=== PATIENT | male | born 1960 | race Caucasian/White ===

== ENCOUNTER 2019-08-30 06:41 | Inpatient (IN) | payer BC ==
[2019-08-30] MEDS ORDERED: NITROGLYCERIN SL TABS 0.4 MG TAB SUBLINGUAL STA (06:43)
--- NOTE | 2019-08-30 06:48 | ED ---
Chest Pain HPI - General Stated Complaint: STEMI Time Seen by Provider: 08/30/19 06:43 Source: patient, EMS Mode of arrival: EMS - History of Present Illness MD Complaint: chest pain Onset/Timin -: hour(s) Onset: during rest, awoke with symptoms Pain Location: substernal Pain Radiation: none Severity: severe Quality: heaviness Consistency: constant Improves With: nothing Worsens With: nothing Anginal Symptoms: nausea, dyspnea Treatments Prior to Arrival: aspirin - Related Data Home Medications Medication Instructions Recorded Confirmed Calcium Carbonate [Tums] 500 mg PO TID PRN 08/30/19 08/30/19 Previous Rx's Medication Instructions Recorded Albuterol Inhaler [Ventolin Hfa 1 - 2 puff INHALATION RT-Q6H PRN 09/02/19 Inhaler] #1 inhaler Aspirin 81 mg PO DAILY #30 chew 09/02/19 Atorvastatin [Lipitor] 80 mg PO HS #30 tab 09/02/19 Lisinopril [Zestril] 2.5 mg PO DAILY #30 tab 09/02/19 Metoprolol Tartrate [Lopressor] 12.5 mg PO BID #60 tab 09/02/19 Nicotine 21Mg/24Hr Patch [Habitrol] 1 patch TRANSDERM DAILY #14 patch 09/02/19 Nitroglycerin Sl Tabs [Nitrostat] 0.4 mg SUBLINGUAL Q5M PRN #25 tab 09/02/19 Prasugrel [Effient] 10 mg PO DAILY #30 tab 09/02/19 Allergies Allergy/AdvReac Type Severity Reaction Status Date / Time No Known Allergies Allergy Verified 08/30/19 07:28 Review of Systems ROS Statement: Those systems with pertinent positive or pertinent negative responses have been documented in the HPI. ROS Other: All systems not noted in ROS Statement are negative. EKG Findings - EKG Results: EKG: interpreted by ERMD, sinus rhythm (With PVC. Rate 64 bpm), normal axis - MD, Pacemaker, Normal: Myocardial infarction: inferior MD (acute or recent), anterior MD (acute or recent) Past Medical History Past Medical History: No Reported History History of Any Multi-Drug Resistant Organisms: None Reported Past Surgical History: No Surgical Hx Reported Past Psychological History: No Psychological Hx Reported Smoking Status: Current every day smoker Past Alcohol Use History: None Reported Past Drug Use History: None Reported - Past Family History Mother Family Medical History: Cancer, Coronary Artery Disease (CAD) Father Family Medical History: Coronary Artery Disease (CAD) General Exam General appearance: alert, in distress Head exam: Present: atraumatic, normocephalic Eye exam: Present: normal appearance. Absent: scleral icterus, conjunctival injection ENT exam: Present: mucous membranes dry Neck exam: Present: normal inspection Respiratory exam: Present: normal lung sounds bilaterally. Absent: respiratory distress, wheezes, rales, rhonchi, stridor Cardiovascular Exam: Present: regular rate, normal rhythm, normal heart sounds. Absent: systolic murmur, diastolic murmur, rubs, gallop GI/Abdominal exam: Present: soft. Absent: distended, tenderness, guarding, rebound, rigid, mass Extremities exam: Present: normal inspection, normal capillary refill. Absent: pedal edema, calf tenderness Back exam: Present: normal inspection. Absent: CVA tenderness (R), CVA tenderness (L) Neurological exam: Present: alert Skin exam: Present: warm, dry, intact, normal color. Absent: rash Course Vital Signs 08/30/19 08/30/19 08/30/19 06:42 06:43 06:45 Temperature 97.3 F L Pulse Rate 67 68 75 Pulse Rate [ 67 Precision Grinder ] Respiratory 20 25 H 11 L Rate Blood Pressure 164/101 164/101 164/101 O2 Sat by Pulse 100 100 100 Oximetry 08/30/19 06:55 Temperature Pulse Rate 71 Pulse Rate [ Precision Grinder ] Respiratory 20 Rate Blood Pressure 148/109 O2 Sat by Pulse 98 Oximetry - Reevaluation(s) Reevaluation #1: 08/30/19 06:48 Patient's 59-year-old man brought to be evaluated for chest pain by ambulance. 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 Critical Care Time Critical Care Time: Yes (30 minutes) Disposition Clinical Impression: ST elevation myocardial infarction (STEMI) Disposition: ADMITTED IP TO THIS HOSP
[2019-08-30] MEDS ORDERED: ATORVASTATIN 80 MG TAB PO STA (06:52)
[2019-08-30] MEDS ORDERED: MORPHINE SULFATE 4 MG/ML SYRINGE IV STA (06:52)
[2019-08-30] MEDS ORDERED: HEPARIN SODIUM,PORCINE 5,000 UNIT/ML 1 ML VIAL IV ONE (06:53)
[2019-08-30] MEDS ORDERED: HEPARIN SODIUM,PORCINE 5,000 UNIT/ML 1 ML VIAL IV PRN (06:53)
[2019-08-30] MEDS ORDERED: NITROGLYCERIN-D5W PMX 50 MG in DEXTROSE/WATER 1 250ML.BAG IV ONE (06:55)
--- NOTE | 2019-08-30 06:58 | XR ---
EXAMINATION TYPE: XR chest 1V portable DATE OF EXAM: 08/30/2019 COMPARISON: NONE HISTORY: Chest pain TECHNIQUE: Single view FINDINGS: Heart is normal. There is a mild infiltrate right medial lung base. The other lung cool a re clear. There are chest leads. There is no heart failure. IMPRESSION: Mild right lower lobe pneumonia. Normal heart.
[2019-08-30] MEDS ORDERED: HEPARIN SOD,PORK IN 0.45% NACL 25,000 UNIT in 0.45% NACL 1 250ML.BAG IV SCH (07:00)
[2019-08-30] MEDS ORDERED: LIDOCAINE 1% INJ 10MG/ML (20 ML MDV) ONE (07:01)
[2019-08-30] MEDS ORDERED: fentaNYL (PF) 50 MCG/ML 2 ML AMP ONE (07:01)
[2019-08-30] MEDS ORDERED: ONDANSETRON 4 MG/2 ML VIAL IVP STA (07:03)
[2019-08-30 07:05] LABS: Basophils # (A) 0.1 k/uL (0-0.2); Basophils % (A) 1 %; Eosinophils # (A) 0.3 k/uL (0-0.7); Eosinophils % (A) 2 %; Lymphocytes # (A) 3.7 k/uL (1.0-4.8); Lymphocytes % (A) 34 %; MCH 31.1 pg (25.0-35.0); MCHC 35.6 g/dL (31.0-37.0); MCV 87.4 fL (80.0-100.0); Mean Platelet Volume 8.2; Monocytes # (A) 0.6 k/uL (0-1.0); Monocytes % (A) 6 %; Neutrophils # (A) 5.9 k/uL (1.3-7.7); Neutrophils % (A) 54 %; Platelet Count 322 k/uL (150-450); RBC 5.15 m/uL (4.30-5.90); RDW 12.6 % (11.5-15.5); WBC 10.9 k/uL (3.8-10.6)
[2019-08-30] MEDS ORDERED: IV FLUID CONTINUATION 500 ML IV ONE (07:15)
[2019-08-30] MEDS ORDERED: IV FLUID CONTINUATION 1,000 ML IV ONE (07:15)
[2019-08-30 07:16] LABS: Albumin 4.2 g/dL (3.5-5.0); Calcium 10.3 mg/dL (8.4-10.2); Magnesium 2.2 mg/dL (1.6-2.3); Potassium 4.3 mmol/L (3.5-5.1); Total Bilirubin 0.7 mg/dL (0.2-1.3)
[2019-08-30] MEDS ORDERED: MIDAZOLAM 2 MG/2 ML VIAL IV ONE ×3 (07:22→07:49)
[2019-08-30] MEDS ORDERED: LIDOCAINE 1% INJ 10MG/ML (20 ML MDV) SQ ONE (07:23)
[2019-08-30 07:24] LABS: D-Dimer 0.35 mg/L FEU (<0.60); INR 0.9 (<1.2); Prothrombin Time 9.9 sec (9.0-12.0)
[2019-08-30] MEDS: fentaNYL (PF) 50 MCG/ML 2 ML AMP IV ONE ×2 (07:30→07:50)
[2019-08-30] MEDS ORDERED: PRASUGREL 10 MG TAB ONE (07:36)
[2019-08-30] MEDS ORDERED: BIVALIRUDIN BOLUS 250 MG/50 ML IV ONE (07:37)
[2019-08-30 07:38] LABS: Creatine Kinase MB 2.4 ng/mL (0.0-2.4); Troponin I 0.034 ng/mL (0.000-0.034)
[2019-08-30] MEDS ORDERED: BIVALIRUDIN 250 MG in SODIUM CHLORIDE 0.9% 50 ML IV ONE ×2 (07:38→08:07)
[2019-08-30] MEDS ORDERED: niCARdipine 25 MG/10 ML VIAL ONE (07:40)
[2019-08-30] MEDS ORDERED: PRASUGREL 10 MG TAB PO ONE (07:40)
[2019-08-30] MEDS ORDERED: ATROPINE SULFATE 0.1 MG/ML 10ML SYRINGE IV ONE (07:42)
[2019-08-30] MEDS: NITROGLYCERIN 1000MCG/10ML SYRINGE INTRACORON ONE ×2 (07:50→07:56)
[2019-08-30] MEDS ORDERED: IOPAMIDOL-370 125ML BTL INJ ONE (08:02)
[2019-08-30] MEDS ORDERED: IOPAMIDOL-370 100ML BTL INJ ONE (08:21)
[2019-08-30] MEDS ORDERED: RX INFO: IV CONTRAST WAS GIVEN 1 EACH MISC MISCELLANE PRN (08:49)
[2019-08-30] MEDS ORDERED: NITROGLYCERIN SL TABS 0.4 MG TAB SUBLINGUAL PRN (08:49)
[2019-08-30] MEDS ORDERED: ZOLPIDEM 5 MG TAB PO PRN (08:49)
[2019-08-30] MEDS ORDERED: MAG HYDROX/AL HYDROX/SIMETH 30 ML CUP PO PRN (08:49)
[2019-08-30] MEDS ORDERED: ATROPINE SULFATE 0.1 MG/ML 10ML SYRINGE IV PRN (08:49)
[2019-08-30] MEDS ORDERED: SODIUM CHLORIDE 0.9% 1,000 ML IV SCH (09:00)
[2019-08-30 09:01] LABS: Glucose,Whole Blood 111 mg/dL (75-99)
[2019-08-30] MEDS ORDERED: LISINOPRIL 10 MG TAB PO SCH (09:15)
--- NOTE | 2019-08-30 09:25 | PTCA ---
PERCUTANEOUSTRANS CORORONARY ANGIOGRAPHY PERCUTANEOUS CORONARY INTERVENTION: DATE OF SERVICE: August 30, 2019. PERFORMING PHYSICIAN: Brando Harrell MD. PROCEDURE PERFORMED: 1. Aspiration thrombectomy from the right coronary artery. 2. Successful stenting of the mid right coronary artery using a 3.5 x 15 and 4.0 x 8 mm Xience JAKE with an excellent angiographic result and reduction of stenosis from 100% to 0%. 3. Successful stenting of the mid left anterior descending artery using a 3.5 x 15 mm Xience with JAKE with an excellent angiographic result and reduction of stenosis from 80% to 0%. INDICATION: This is a 59-year-old gentleman with no prior medical history, who presented to the hospital with chest discomfort and was diagnosed with acute inferior ST-elevation myocardial infarction. An emergent heart catheterization was advised by Dr. Perez. The heart catheterization revealed acute total occlusion of the RCA with critical disease involving the LAD. Percutaneous coronary intervention emergently was advised. APPROACH: Right common femoral artery. COMPLICATION: None. LEVEL OF SEDATION: Moderate with sedation length of 47 minutes. Door to balloon is 60 minutes. PROCEDURE DESCRIPTION: Please refer to diagnostic heart catheterization was performed by Dr. Perez earlier today. Anticoagulation was initiated using Angiomax. Subsequently I did engage the right coronary artery using JR4 guide. I did wire it and cross the acute total occlusion using a Whisper J wire. After that I did aspiration thrombectomy using [place] catheter with extraction of significant amount of thrombus from the right coronary artery. After that I did balloon angioplasty using 3.0 x 12 mm balloon before I deployed 3.5 x 15 mm Xience JAKE where the stent was positioned under fluoroscopy guidance and deployed under 18 atmospheres for 20 seconds. I post dilated the stent using 4 mm NC balloon, but the following angiogram showed proximal edge dissection which I decided to cover using a 4.0 x 8 mm another Xience JAKE. The second stent was deployed under its nominal pressure for 20 seconds. The area of overlap was dilated using the stent balloon and the following angiograph showed excellent angiographic results. For the LAD, I did engage the left main using JL4 guide. I did wire it using the same whisper wire. I did predilatation using 3.0 x 12 mm balloon before I deployed 3.5 x 15 mm another Xience JAKE where the second stent was positioned under fluoroscopy guidance and deployed under its nominal pressure. The following angiogram showed excellent angiographic results and the procedure was completed without any complication. POSTPROCEDURE MANAGEMENT: 1. Dual antiplatelet therapy. 2. Risk factor modifications. 3. Follow up with the patient. TRANG / ALLISON: [id number] /
--- NOTE | 2019-08-30 09:32 | LTR ---
August 30, 2019 Re: Umesh Martinez Dear Dr. Huerta: MrDyllan Martinez presented to the emergency room at [facility] with chest discomfort and was found to be in acute inferior ST-elevation myocardial infarction. He underwent an emergent heart catheterization by Dr. Perez and I did perform successful percutaneous intervention on the RCA and LAD. Thank you for allowing us to participate in his care and please do not hesitate to call if you have any question or concern. Sincerely, MD TRANG Barfield / GRISELDAN: [id number] /
--- NOTE | 2019-08-30 10:08 | CONS ---
CONSULTATION CHIEF COMPLAINT: Chest pain. This is a 59-year-old gentleman with no significant past medical history who presented to hospital with sudden onset chest pain. The pain started an hour prior to coming in. He describes it as severe pericardial chest pain 9-10 out of intensity that radiated to his back. EKG showed acute ST-segment elevation in the inferior leads and the patient was advised emergent cath and primary angioplasty. PAST MEDICAL HISTORY: Negative for hypertension, diabetes, dyslipidemia. MEDICATIONS: None. ALLERGIES: None. FAMILY HISTORY: Negative for premature coronary artery disease. SOCIAL HISTORY: Significant for smoking. There is no history of EtOH abuse or drug abuse. REVIEW OF SYSTEMS: HEENT: Unremarkable. CARDIAC: As described above. RESPIRATORY: Negative. GI: Negative. GENITOURINARY: Negative. ALLERGY/IMMUNOLOGY: Negative. SKIN: Negative. MUSCULOSKELETAL: Negative. DERM: Negative. CONSTITUTIONAL: Negative ONCOLOGICAL: Negative. VOCAL MUSIC INSTRUCTOR: Negative. Rest of the system review is not relevant. PHYSICAL EXAM: Patient is comfortable at rest. Vital signs are stable. There is no jugular venous distention. Carotid upstroke is normal. There is no bruit. Chest exam reveals good air entry bilaterally. Heart exam reveals first and second heart sounds. No gallop. Abdomen is soft. Exam of the extremities did not reveal any edema. Peripheral pulses are felt. EKG showed acute inferior wall myocardial infarction. Labs were pending. ASSESSMENT: Acute inferior wall myocardial infarction. PLAN: The patient will undergo emergent cardiac catheterization. CARDIAC CATHETERIZATION NOTE: INDICATION: Acute inferior wall myocardial infarction. PROCEDURE NOTE: After obtaining informed consent, left heart catheterization and coronary angiogram were performed via the right femoral artery using standard Noé catheters. Patient tolerated the procedure well without any obvious immediate complications. Patient received moderate conscious sedation. Total sedation time was 11 minutes. FINDINGS: HEMODYNAMICS: Left ventricular end-diastolic pressure is 16 mm. There is no significant gradient across the aortic valve. LEFT VENTRICULOGRAM: Left ventriculogram was not performed. ANGIOGRAPHIC DATA: LEFT MAIN CORONARY ARTERY: Left main coronary artery is a normal-sized vessel and is free of stenosis. Divides into left anterior descending coronary artery and circumflex coronary artery. LAD shows an 80% - 90% focal stenosis in the midportion. The circumflex coronary artery shows mild nonobstructive coronary artery disease. Right coronary artery is totally occluded in its proximal portion. CONCLUSION: 1. Acute occlusion of the proximal right coronary artery. 2. An 80% to 90% stenosis in the left anterior descending a. PLAN: Patient will undergo angioplasty of both the RCA and the LAD. MMNICK / IJN: [id number] /
[2019-08-30] MEDS: LISINOPRIL 2.5 MG TAB PO SCH (10:22)
[2019-08-30] MEDS: ASPIRIN 325 MG TAB PO SCH (10:22)
[2019-08-30] MEDS: METOPROLOL TARTRATE 12.5 MG TAB PO SCH ×2 (10:22→21:14)
[2019-08-30] MEDS: NICOTINE 21MG/24HR PATCH TRANSDERM SCH (10:22)
--- NOTE | 2019-08-30 12:33 | ECHOF ---
Referral Reason:STEMI MEASUREMENTS -------- HEIGHT: 170.2 cm WEIGHT: 97.5 kg BP: 148/109 RVIDd: 3.7 cm (< 3.3) IVSd: 1.3 cm (0.6 - 1.1) LVIDd: 4.2 cm (3.9 - 5.3) LVPWd: 1.3 cm (0.6 - 1.1) IVSs: 1.7 cm LVIDs: 2.9 cm LVPWs: 1.9 cm LAESV Index (A-L): 35.49 ml/m Ao Diam: 3.4 cm (2.0 - 3.7) AV Cusp: 1.9 cm (1.5 - 2.6) LA Diam: 4.0 cm (2.7 - 3.8) MV E Sarbjit: 0.67 m/s MV DecT: 237 ms MV A Sarbjit: 0.81 m/s MV E/A Ratio: 0.84 RAP: 5.00 mmHg RVSP: 25.16 mmHg FINDINGS -------- Sinus rhythm. This was a technically adequate study. The left ventricular size is normal. Left ventricular wall thickness is normal. Overall left vent ricular systolic function is low-normal with, an EF between 50 - 55 %. The diastolic filling patter n is normal for the age of the patient 6.96. Basal inferior LV wall motion is hypokinetic. Mid i nferior LV wall motion is hypokinetic. The right ventricle is mildly enlarged. LA is moderately dilated 34-39 ml/m2 The right atrial size is normal. Interatrial and interventricular septum intact. The aortic valve is trileaflet and appears structurally normal. There is no evidence of aortic regu rgitation. There is no evidence of aortic stenosis. Mild mitral regurgitation is present. Trace tricuspid regurgitation present. There is no evidence of pulmonary hypertension. The right ventricular systolic pressure, as measured by Doppler, is 25.16mmHg. There is no pulmonic regurgitation present. The aortic root size is normal. Normal inferior vena cava with normal inspiratory collapse consistent with estimated right atrial pre ssure of 5 mmHg. There is no pericardial effusion. CONCLUSIONS -------- 1. Sinus rhythm. 2. This was a technically adequate study. 3. The left ventricular size is normal. 4. Left ventricular wall thickness is normal. 5. Overall left ventricular systolic function is low-normal with, an EF between 50 - 55 %. 6. The diastolic filling pattern is normal for the age of the patient 6.96 7. Basal inferior LV wall motion is hypokinetic. 8. Mid inferior LV wall motion is hypokinetic. 9. The right ventricle is mildly enlarged. 10. LA is moderately dilated 34-39 ml/m2 11. The right atrial size is normal. 12. Interatrial and interventricular septum intact. 13. The aortic valve is trileaflet and appears structurally normal. 14. There is no evidence of aortic regurgitation. 15. There is no evidence of aortic stenosis. 16. Mild mitral regurgitation is present. 17. Trace tricuspid regurgitation present. 18. There is no evidence of pulmonary hypertension. 19. The right ventricular systolic pressure, as measured by Doppler, is 25.16mmHg. 20. There is no pulmonic regurgitation present. 21. The aortic root size is normal. 22. Normal inferior vena cava with normal inspiratory collapse consistent with estimated right atrial pressure of 5 mmHg. 23. There is no pericardial effusion. CALL CENTER RECRUITER: Shabnam Beltran RDCS
--- NOTE | 2019-08-30 12:44 | PN ---
PROGRESS NOTE Mr. Martinez is a 59-year-old gentleman, a smoker, who presented with acute inferior [place] and underwent stenting of a totally occluded RCA by Dr. Harrell. Dr. Perez performed a cardiac catheterization. He also had stenting of mid LAD which was a significant lesion. I saw him post procedure in the ICU. He is comfortable, resting, denies any chest pain. Vital signs stable. Right groin is clean and dry with a good pulse. S1, S2 heard normally. Lungs are clear. Abdomen and lower extremity exam unchanged. Plan is to continue current medical regimen including dual antiplatelet therapy and we will assess his LV function by echocardiogram and if he is more stable, we will move him to telemetry tomorrow. Discussed my thoughts in detail with the patient. MMJACINTAL / GRISELDAN: [id number] /
--- NOTE | 2019-08-30 19:40 | P.HPIM ---
History of Present Illness H&P Date: 08/30/19 Chief Complaint: Chest pain History of presenting complaint: This is a pleasant 59-year-old patient of Dr. Huerta. Patient long-standing smoker. About 540 this morning patient took a shower minutes coffee the noticed he was getting a chest pressure that progressively got worse. Patient was just feeling out of sorts started breaking a sweat became short of breath and decided to call the EMS and presented to the ER. Patient did go to neck, arms. EKG showed ST elevation in inferior and anterior leads. Patient stated the cardiac catheterization lab. Patient had successful stenting of the RCA and LAD. Currently in the ICU. Sitting up in a chair. No further cardiac symptoms. at the bedside. Patient gets sometimes short-winded or doing activity at her baseline. Has got a chronic cough and chronic clear sputum production every day. Sometimes wheezing. Review of systems: GEN.: Tired EYES: None HEENT: None NECK: None RESPIRATORY: As above CARDIOVASCULAR: [As above GASTROINTESTINAL: None GENITOURINARY: None MUSCULOSKELETAL: Pain in the right knee, some of the joints LYMPHATICS: None HEMATOLOGICAL: None PSYCHIATRY: None NEUROLOGICAL: None Social history: Smokes a pack a day for about 46 years. 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 . Family history: Coronary artery disease Physical examination: VITAL SIGNS: 97.367, 20, 164/101, 100% room air GENERAL: BMI 35.6, sitting up in a chair awake. EYES: Pupils equal. Conjunctiva normal. HEENT: External appearance of nose and ears normal, oral cavity grossly normal. NECK: JVD not raised; masses not palpable. HEART: First and second heart sounds are normal; no edema. LUNGS: Respiratory rate normal; decreased breath sounds throughout, prolonged expiration extremity wheezing. ABDOMEN: Soft, nontender, liver spleen not palpable, no masses palpable. PSYCH: Alert and oriented x3; mood and affect normal. NEUROLOGICAL: Cranial nerves grossly intact; no facial asymmetry, power and sensation grossly intact. LYMPHATICS: No lymph nodes palpable in the axilla and neck INVESTIGATIONS, reviewed in the clinical context: White count 10.9 hemoglobin 16 platelets 320 to percussion 4.3 bun 15 creatinine 1.28 EKG tracing personally reviewed by me-ST elevation inferior-anterior leads sinus rhythm Chest x-ray film personally reviewed by me-cardiomegaly, questionable venous prominence 2-D echocardiogram-year 50-55%, inferior wall hypokinetic Assessment: -Acute ST elevation microinfarction involved both the anterior and inferior wall -Coronary artery disease with stent emergently placed port to the LAD and RCA -Chronic nicotine dependence patient cigarette smoker -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 Currently on Aspirin and Lipitor IV Heparin Zestril Lopressor Nitrostat Effient. Has a Nicotine Patch. Blood Nebulized Bronchodilators Inhaled Steroids. Care Was Discussed the Patient and Questions Were Answered Past Medical History Past Medical History: No Reported History History of Any Multi-Drug Resistant Organisms: None Reported Past Surgical History: No Surgical Hx Reported Additional Past Surgical History / Comment(s): eye surgery for loose muscles when he was 4, 12, and 18 years old. Past Anesthesia/Blood Transfusion Reactions: No Reported Reaction Past Psychological History: No Psychological Hx Reported Smoking Status: Current every day smoker Past Alcohol Use History: None Reported Past Drug Use History: None Reported - Past Family History Mother Family Medical History: Cancer, Coronary Artery Disease (CAD) Father Family Medical History: Coronary Artery Disease (CAD) Medications and Allergies Home Medications Medication Instructions Recorded Confirmed Type Calcium Carbonate [Tums] 500 mg PO TID PRN 08/30/19 08/30/19 History Allergies Allergy/AdvReac Type Severity Reaction Status Date / Time No Known Allergies Allergy Verified 08/30/19 07:28 Physical Exam Vitals: Vital Signs Temp Pulse Pulse Resp BP Pulse Ox 08/30/19 09:30 64 16 109/75 08/30/19 09:15 64 19 120/77 08/30/19 09:00 98.3 F 69 12 122/75 08/30/19 06:55 71 20 148/109 98 08/30/19 06:45 75 67 11 L 164/101 100 08/30/19 06:43 68 25 H 164/101 100 08/30/19 06:42 97.3 F L 67 20 164/101 100 Intake and Output 08/29/19 08/30/19 08/30/19 22:59 06:59 14:59 Intake Total 491 Balance 491 Intake: IV 491 Other: Weight 97.522 kg 103 kg Results CBC & Chem 7: 08/30/19 06:50 08/30/19 06:50 Labs: Abnormal Lab Results - Last 24 Hours (Table) 08/30/19 08/30/19 08/30/19 Range/Units 06:50 06:50 06:50 WBC 10.9 H (3.8-10.6) k/uL Chloride 111 H (98-107) mmol/L Carbon Dioxide 16 L (22-30) mmol/L Creatinine 1.28 H (0.66-1.25) mg/dL Glucose 111 H (74-99) mg/dL POC Glucose (mg/dL) (75-99) mg/dL Calcium 10.3 H (8.4-10.2) mg/dL Total Creatine Kinase 188 H (55-170) U/L 08/30/19 Range/Units 08:50 WBC (3.8-10.6) k/uL Chloride (98-107) mmol/L Carbon Dioxide (22-30) mmol/L Creatinine (0.66-1.25) mg/dL Glucose (74-99) mg/dL POC Glucose (mg/dL) 111 H (75-99) mg/dL Calcium (8.4-10.2) mg/dL Total Creatine Kinase (55-170) U/L Thrombosis Risk Factor Assmnt - Choose All That Apply Any of the Below Risk Factors Present?: Yes Each Factor Represents 1 point: Acute NE, Age 41-60 years, Medical pt on bed rest Other Risk Factors: No Other congenital or acquired thrombophilia - If yes, enter type in comment: No Thrombosis Risk Factor Assessment Total Risk Factor Score: 3 Thrombosis Risk Factor Assessment Level: Moderate Risk
[2019-08-30] MEDS: ATORVASTATIN 80 MG TAB PO SCH (21:14)
[2019-08-30] MEDS: BUDESONIDE 0.5 MG/2 ML NEBU INHALATION SCH (23:00)
[2019-08-30] MEDS: IPRATROPIUM-ALBUTEROL 3 ML NEB INHALATION SCH (23:01)
[2019-08-31 05:44] LABS: Basophils % (A) 0 %; Eosinophils # (A) 0.1 k/uL (0-0.7); Eosinophils % (A) 1 %; HCT 39.8 % (39.0-53.0); HGB 13.9 gm/dL (13.0-17.5); Lymphocytes # (A) 1.7 k/uL (1.0-4.8); Lymphocytes % (A) 17 %; MCH 30.9 pg (25.0-35.0); MCV 88.3 fL (80.0-100.0); Mean Platelet Volume 8.1; Monocytes # (A) 0.4 k/uL (0-1.0); Monocytes % (A) 4 %; Neutrophils # (A) 7.6 k/uL (1.3-7.7); Neutrophils % (A) 76 %; Platelet Count 217 k/uL (150-450); RDW 12.6 % (11.5-15.5)
[2019-08-31 05:59] LABS: African American GFR (CKD) >90 (>60 ml/min/1.73 sqM); Anion Gap 5 mmol/L; Blood Urea Nitrogen 13 mg/dL (9-20); Calcium 9.3 mg/dL (8.4-10.2); Carbon Dioxide 22 mmol/L (22-30); Chloride 110 mmol/L (98-107); Glucose 90 mg/dL (74-99); Non-African American GFR(CKD) 79 (>60 ml/min/1.73 sqM); Potassium 4.4 mmol/L (3.5-5.1); Sodium 137 mmol/L (137-145)
[2019-08-31] MEDS: BUDESONIDE 0.5 MG/2 ML NEBU INHALATION SCH ×2 (07:40→19:31)
[2019-08-31] MEDS: IPRATROPIUM-ALBUTEROL 3 ML NEB INHALATION SCH ×4 (07:40→19:31)
[2019-08-31] MEDS: PRASUGREL 10 MG TAB PO SCH (08:16)
[2019-08-31] MEDS: NICOTINE 21MG/24HR PATCH TRANSDERM SCH (08:16)
[2019-08-31] MEDS: ASPIRIN 325 MG TAB PO SCH (08:16)
[2019-08-31] MEDS: LISINOPRIL 2.5 MG TAB PO SCH (08:16)
[2019-08-31] MEDS: METOPROLOL TARTRATE 12.5 MG TAB PO SCH ×2 (08:16→19:59)
--- NOTE | 2019-08-31 13:08 | P.PN ---
Subjective Progress Note Date: 08/31/19 Principal diagnosis: Acute ST elevation SC This is a pleasant 59-year-old gentleman who presented to the hospital with chest discomfort and was diagnosed with acute inferior ST elevation myocardial infarction be he underwent a heart catheterization and was found to have occluded RCA which was a stented and also critical disease involving the LAD which was stented as well. The echo revealed normal LV function. He was seen this morning. He is chest pain-free. The right groin is soft nontender and without any bruises. He continues to be on maximize medical treatment including dual antiplatelet therapy. The echo showed normal LV function. No arrhythmia noted the patient can be transferred to the floor. Objective - Vital Signs Vital signs: Vital Signs Temp 98.7 F 08/31/19 12:00 Pulse 70 08/31/19 12:00 Resp 18 08/31/19 12:00 BP 135/93 08/31/19 12:00 Pulse Ox 94 L 08/31/19 12:00 Intake & Output 08/30/19 08/31/19 08/31/19 18:59 06:59 18:59 Intake Total 1766 375 0 Output Total 450 775 300 Balance 1316 -400 -300 Weight 103 kg 106.7 kg Intake: IV 1466 375 0 Sodium Chloride 0.9% 1, 975 375 0 000 ml @ 75 mls/hr IV . [id number] [facility] Rx#:[id number] Oral 300 Output: Urine 450 775 300 Other: Voiding Method Urinal # Voids 0 0 - Constitutional General appearance: Present: no acute distress - Respiratory Respiratory: bilateral: CTA - Cardiovascular Rhythm: regular Heart sounds: normal: S1, S2 - Labs CBC & Chem 7: 08/31/19 05:08 08/31/19 05:08 Labs: Abnormal Lab Results - Last 24 Hours (Table) 08/31/19 Range/Units 05:08 Chloride 110 H (98-107) mmol/L Assessment and Plan Assessment: Assessment #[address] elevation myocardial infarction #2 status post PCI of the RCA and LAD #3 preserved left ventricular systolic function #4 hypertension #5 dyslipidemia Plan #1 continue the current medical regimen #2 continue dual antiplatelet therapy along with high intensity statin #3 the patient can be transferred to the floor
[2019-08-31 13:43] VITALS: BMI 36.8
[2019-08-31] MEDS: ATORVASTATIN 80 MG TAB PO SCH (19:59)
--- NOTE | 2019-08-31 22:12 | P.PN ---
Progress Note - Text Progress Note Date: 08/31/19 Chief Complaint: Chest pain Interval history: This is a pleasant 59-year-old patient of Dr. Huerta. Patient long-standing smoker. About 540 this morning patient took a shower minutes coffee the noticed he was getting a chest pressure that progressively got worse. Patient was just feeling out of sorts started breaking a sweat became short of breath and decided to call the EMS and presented to the ER. Patient did go to neck, arms. EKG showed ST elevation in inferior and anterior leads. Patient stated the cardiac catheterization lab. Patient had successful stenting of the RCA and LAD. Today-on the medical floor. Breathing stable. No chest pain. Has been up in the hallway. Diet okay. Review of systems: Was done for constitutional, cardiovascular, GI, pulmonary. relevant finding as above Active Medications Al Hydroxide/Mg Hydroxide (Maalox) 30 ml PO Q4HR PRN PRN Reason: Heartburn Last Admin: 08/30/19 16:55 Dose: 30 ml Documented by: Albuterol/Ipratropium (Duoneb 0.5 Mg-3 Mg/3 Ml Soln) 3 ml INHALATION RT-QID [facility] Last Admin: 08/31/19 19:31 Dose: Not Given Documented by: Aspirin (Aspirin) 325 mg PO DAILY [facility] Last Admin: 08/31/19 08:16 Dose: 325 mg Documented by: Atorvastatin Calcium (Lipitor) 80 mg PO HS [facility] Last Admin: 08/31/19 19:59 Dose: 80 mg Documented by: Atropine Sulfate (Atropine) 0.5 mg IV ONCE PRN PRN Reason: Symptomatic Bradycardia Budesonide (Pulmicort) 0.5 mg INHALATION RT-BID [facility] Last Admin: 08/31/19 19:31 Dose: Not Given Documented by: Heparin Sodium (Porcine) (Heparin) 0 unit IV PER PROTOCOL PRN; Protocol PRN Reason: Low PTT Lisinopril (Zestril) 2.5 mg PO DAILY [facility] Last Admin: 08/31/19 08:16 Dose: 2.5 mg Documented by: Metoprolol Tartrate (Lopressor) 12.5 mg PO BID [facility] Last Admin: 08/31/19 19:59 Dose: 12.5 mg Documented by: Miscellaneous Information (Rx Info: Iv Contrast Was Given) 1 each MISCELLANE DAILY PRN PRN Reason: Per Protocol Stop: 09/01/19 08:49 Nicotine (Habitrol 21mg/24hr Patch) 1 patch TRANSDERM DAILY [facility] Last Admin: 08/31/19 08:16 Dose: 1 patch Documented by: Nitroglycerin (Nitrostat) 0.4 mg SUBLINGUAL Q5M PRN PRN Reason: Chest Pain Prasugrel (Effient) 10 mg PO DAILY [facility] Last Admin: 08/31/19 08:16 Dose: 10 mg Documented by: Zolpidem Tartrate (Ambien) 5 mg PO HS PRN PRN Reason: Insomnia Physical examination: VITAL SIGNS: 98.2, 70, 16, 126/85, 97% room air GENERAL: Sitting sitting up in bed, comfortable EYES: Pupils equal. Conjunctiva normal. HEENT: External appearance of nose and ears normal, oral cavity grossly normal. NECK: JVD not raised; masses not palpable. HEART: First and second heart sounds are normal; no edema. LUNGS: Respiratory rate normal; decreased breath sounds throughout, prolonged expiration extremity wheezing. ABDOMEN: Soft, nontender, liver spleen not palpable, no masses palpable. PSYCH: Alert and oriented x3; mood and affect normal. INVESTIGATIONS, reviewed in the clinical context: White count 10 hemoglobin 13.9 and creatinine 1.04 Previous testing EKG tracing personally reviewed by me-ST elevation inferior-anterior leads sinus rhythm Chest x-ray film personally reviewed by me-cardiomegaly, questionable venous prominence 2-D echocardiogram-year 50-55%, inferior wall hypokinetic Assessment: -Acute ST elevation microinfarction involved both the anterior and inferior wall -Coronary artery disease with stent emergently placed port to the LAD and RCA -Chronic nicotine dependence patient cigarette smoker -COPD in a combination of chronic bronchitis and emphysema -Obesity BMI 35.6 Plan: Doing better. Encouraged tablet. Continue current medication treatment plan. Care discussed with the patient .
[2019-09-01 06:33] LABS: Basophils % (A) 0 %; Eosinophils # (A) 0.2 k/uL (0-0.7); Eosinophils % (A) 2 %; HCT 42.7 % (39.0-53.0); HGB 14.9 gm/dL (13.0-17.5); Lymphocytes # (A) 1.8 k/uL (1.0-4.8); Lymphocytes % (A) 18 %; MCH 30.8 pg (25.0-35.0); MCHC 34.9 g/dL (31.0-37.0); MCV 88.3 fL (80.0-100.0); Mean Platelet Volume 8.4; Monocytes # (A) 0.6 k/uL (0-1.0); Monocytes % (A) 6 %; Neutrophils % (A) 72 %; Platelet Count 203 k/uL (150-450); RBC 4.84 m/uL (4.30-5.90); RDW 12.3 % (11.5-15.5); WBC 9.7 k/uL (3.8-10.6)
[2019-09-01] MEDS: IPRATROPIUM-ALBUTEROL 3 ML NEB INHALATION SCH ×4 (08:22→20:24)
[2019-09-01] MEDS: BUDESONIDE 0.5 MG/2 ML NEBU INHALATION SCH ×2 (08:22→20:21)
[2019-09-01] MEDS: NICOTINE 21MG/24HR PATCH TRANSDERM SCH (09:03)
[2019-09-01] MEDS: METOPROLOL TARTRATE 12.5 MG TAB PO SCH ×2 (09:03→20:20)
[2019-09-01] MEDS: PRASUGREL 10 MG TAB PO SCH (09:03)
[2019-09-01] MEDS: ASPIRIN 325 MG TAB PO SCH (09:03)
[2019-09-01] MEDS: LISINOPRIL 2.5 MG TAB PO SCH (09:03)
--- NOTE | 2019-09-01 12:30 | P.PN ---
Subjective Progress Note Date: 09/01/19 Principal diagnosis: Acute ST elevation MO This is a pleasant 59-year-old gentleman who presented to the hospital with chest discomfort and was diagnosed with acute inferior ST elevation myocardial infarction be he underwent a heart catheterization and was found to have occluded RCA which was a stented and also critical disease involving the LAD which was stented as well. The echo revealed normal LV function. The patient was seen this morning, September [id number]. He is asymptomatic from the cardiovascular standpoint overview. The blood pressure is marginal but he has no dizziness or lightheadedness. The heart rate has been in the 70s. He has been maintaining normal sinus mechanism. The echo revealed normal left ventricular systolic function. He is on maximize medical treatment including dual antiplatelet therapy and high intensity statin. The patient possibly can be discharged home tomorrow. Objective - Vital Signs Vital signs: Vital Signs Temp 98.5 F 09/01/19 09:11 Pulse 89 09/01/19 09:11 Resp 16 09/01/19 09:11 BP 109/62 09/01/19 09:11 Pulse Ox 96 09/01/19 09:11 Intake & Output 08/31/19 09/01/19 09/01/19 18:59 06:59 18:59 Intake Total 420 240 Output Total 300 Balance 120 240 Weight 106.7 kg 99 kg Intake: IV 0 Sodium Chloride 0.9% 1, 0 000 ml @ 75 mls/hr IV . [id number] [facility] Rx#:[id number] Oral 420 240 Output: Urine 300 Other: Voiding Method Urinal Urinal # Voids 1 1 - Constitutional General appearance: Present: no acute distress - Respiratory Respiratory: bilateral: CTA - Cardiovascular Rhythm: regular Heart sounds: normal: S1, S2 - Labs CBC & Chem 7: 09/01/19 05:48 08/31/19 05:08 Assessment and Plan Assessment: Assessment #[address] elevation myocardial infarction #2 status post PCI of the RCA and LAD #3 preserved left ventricular systolic function #4 hypertension #5 dyslipidemia Plan #1 continue the current medical regimen #2 continue dual antiplatelet therapy along with high intensity statin #3 discharged home in the next 24 hours
--- NOTE | 2019-09-01 20:14 | P.PN ---
Progress Note - Text Progress Note Date: 09/01/19 Chief Complaint: Chest pain Interval history: This is a pleasant 59-year-old patient of Dr. Huerta. Patient long-standing smoker. About 540 this morning patient took a shower minutes coffee the noticed he was getting a chest pressure that progressively got worse. Patient was just feeling out of sorts started breaking a sweat became short of breath and decided to call the EMS and presented to the ER. Patient did go to neck, arms. EKG showed ST elevation in inferior and anterior leads. Patient stated the cardiac catheterization lab. Patient had successful stenting of the RCA and LAD. Today-up and about. No chest pain. No shortness of breath. Breathing stable. Review of systems: Was done for constitutional, cardiovascular, GI, pulmonary. relevant finding as above Active Medications Al Hydroxide/Mg Hydroxide (Maalox) 30 ml PO Q4HR PRN PRN Reason: Heartburn Last Admin: 08/30/19 16:55 Dose: 30 ml Documented by: Albuterol/Ipratropium (Duoneb 0.5 Mg-3 Mg/3 Ml Soln) 3 ml INHALATION RT-QID [facility] Last Admin: 09/01/19 16:16 Dose: Not Given Documented by: Aspirin (Aspirin) 325 mg PO DAILY [facility] Last Admin: 09/01/19 09:03 Dose: 325 mg Documented by: Atorvastatin Calcium (Lipitor) 80 mg PO HS [facility] Last Admin: 08/31/19 19:59 Dose: 80 mg Documented by: Atropine Sulfate (Atropine) 0.5 mg IV ONCE PRN PRN Reason: Symptomatic Bradycardia Budesonide (Pulmicort) 0.5 mg INHALATION RT-BID [facility] Last Admin: 09/01/19 08:22 Dose: Not Given Documented by: Heparin Sodium (Porcine) (Heparin) 0 unit IV PER PROTOCOL PRN; Protocol PRN Reason: Low PTT Lisinopril (Zestril) 2.5 mg PO DAILY [facility] Last Admin: 09/01/19 09:03 Dose: 2.5 mg Documented by: Metoprolol Tartrate (Lopressor) 12.5 mg PO BID [facility] Last Admin: 09/01/19 09:03 Dose: 12.5 mg Documented by: Nicotine (Habitrol 21mg/24hr Patch) 1 patch TRANSDERM DAILY [facility] Last Admin: 09/01/19 09:03 Dose: 1 patch Documented by: Nitroglycerin (Nitrostat) 0.4 mg SUBLINGUAL Q5M PRN PRN Reason: Chest Pain Prasugrel (Effient) 10 mg PO DAILY [facility] Last Admin: 09/01/19 09:03 Dose: 10 mg Documented by: Zolpidem Tartrate (Ambien) 5 mg PO HS PRN PRN Reason: Insomnia Physical examination: VITAL SIGNS: 98.5, 89, 16, 109/62, 96% room air GENERAL: sitting up in bed, comfortable EYES: Pupils equal. Conjunctiva normal. HEENT: External appearance of nose and ears normal, oral cavity grossly normal. NECK: JVD not raised; masses not palpable. HEART: First and second heart sounds are normal; no edema. LUNGS: Respiratory rate normal; improved air entry ABDOMEN: Soft, nontender, liver spleen not palpable, no masses palpable. PSYCH: Alert and oriented x3; mood and affect normal. INVESTIGATIONS, reviewed in the clinical context: Hemoglobin 14.9 Previous testing EKG tracing personally reviewed by me-ST elevation inferior-anterior leads sinus rhythm Chest x-ray film personally reviewed by me-cardiomegaly, questionable venous prominence 2-D echocardiogram-year 50-55%, inferior wall hypokinetic Assessment: -Acute ST elevation microinfarction involved both the anterior and inferior wall -Coronary artery disease with stent emergently placed port to the LAD and RCA -Chronic nicotine dependence patient cigarette smoker -COPD in a combination of chronic bronchitis and emphysema -Obesity BMI 35.6 Plan: Stable. Doing well. Hopefully home tomorrow. Continue current meds. Discussed.
[2019-09-01] MEDS: ATORVASTATIN 80 MG TAB PO SCH (20:20)
[2019-09-02 00:47] VITALS: RESP 18
[2019-09-02 05:48] LABS: Basophils # (A) 0.1 k/uL (0-0.2); Basophils % (A) 1 %; Eosinophils # (A) 0.2 k/uL (0-0.7); Eosinophils % (A) 2 %; HCT 43.5 % (39.0-53.0); HGB 15.1 gm/dL (13.0-17.5); Lymphocytes # (A) 2.1 k/uL (1.0-4.8); Lymphocytes % (A) 23 %; MCH 30.7 pg (25.0-35.0); MCHC 34.8 g/dL (31.0-37.0); MCV 88.2 fL (80.0-100.0); Monocytes # (A) 0.6 k/uL (0-1.0); Monocytes % (A) 6 %; Neutrophils # (A) 6.1 k/uL (1.3-7.7); Neutrophils % (A) 66 %; Platelet Count 236 k/uL (150-450); RBC 4.93 m/uL (4.30-5.90); RDW 12.3 % (11.5-15.5); WBC 9.3 k/uL (3.8-10.6)
[2019-09-02 09:49] VITALS: BP 128/73; TEMP 97.7
[2019-09-02] MEDS: METOPROLOL TARTRATE 12.5 MG TAB PO SCH (09:49)
[2019-09-02] MEDS: NICOTINE 21MG/24HR PATCH TRANSDERM SCH (09:50)
[2019-09-02] MEDS: ASPIRIN 325 MG TAB PO SCH (09:50)
[2019-09-02] MEDS: LISINOPRIL 2.5 MG TAB PO SCH (09:50)
[2019-09-02] MEDS: PRASUGREL 10 MG TAB PO SCH (09:50)
[2019-09-02] MEDS: BUDESONIDE 0.5 MG/2 ML NEBU INHALATION SCH (10:07)
[2019-09-02 11:40] VITALS: PULSE 66
--- NOTE | 2019-09-02 12:26 | P.PN ---
Subjective Progress Note Date: 09/02/19 's is a 59-year-old gentleman who initially presented to the hospital with an inferior lateral ST elevation myocardial infarction. He underwent angioplasty and stenting of the RCA as well as the LAD. Patient was seen and examined this morning, denied any chest pain, breathing was stable. Blood pressure 128/70 with a heart rate of 70, 97% on room air. White blood cell count 9.3, hemoglobin 15.1, platelet count 236. Objective - Vital Signs Vital signs: Vital Signs Temp 97.7 F 09/02/19 09:49 Pulse 66 09/02/19 11:38 Resp 18 09/02/19 11:38 BP 128/73 09/02/19 09:49 Pulse Ox 97 09/02/19 09:49 Intake & Output 09/01/19 09/02/19 09/02/19 18:59 06:59 18:59 Intake Total 956 530 250 Output Total 620 Balance 956 -90 250 Weight 98.1 kg Intake: IV 30 10 Invasive Line 2 30 10 Oral 956 500 240 Output: Urine 620 Other: Voiding Method Urinal Urinal Urinal # Voids 2 1 # Bowel Movements 1 - Exam PHYSICAL EXAMINATION: GENERAL: 89-year-old gentleman in no acute distress at the time of my examination HEENT: Head is atraumatic, normocephalic. Pupils equal, round. Sclera anicteric. Conjunctiva are clear. Mucous membranes of the mouth are moist. Neck is supple. There is no elevated jugular venous pressure. No carotid bruit is heard. HEART EXAMINATION: Heart S1, S2 normal. No murmur or gallop heard. CHEST EXAMINATION: Lungs are clear to auscultation and precussion. No chest wall tenderness is noted on palpation or with deep breathing. ABDOMEN: Soft, nontender. Bowel sounds are heard. No organomegaly noted. EXTREMITIES: 2+ peripheral pulses with no evidence of peripheral edema and no calf tenderness noted. NEUROLOGIC patient is awake, alert and oriented 3 . - Labs CBC & Chem 7: 09/02/19 05:06 08/31/19 05:08 Assessment and Plan Plan: Assessment and plan #[address] elevation myocardial infarction, status post angioplasty and stenting of the RCA and LAD. #2 hypertension #3 hyperlipidemia Plan Patient may be discharged home today from cardiology's perspective, we'll make him a follow-up appointment in the office with Dr. Mejias post discharge. He will continue the current medications he is on at this time including the dual antiplatelet therapy with high intensity statin. DNP note has been reviewed, I agree with a documented findings and plan of care. Patient was seen and examined.
--- NOTE | 2019-09-03 00:03 | P.DS ---
Providers Date of admission: 08/30/19 06:58 Expected date of discharge: 09/02/19 Attending physician: Chuy Rain Consults: 08/30/19 08:49 Consult Physician Routine Consulting Provider: [facility] Consult Reason/Comments: Post Interventional patient Do you want consulting provider notified?: Already Contacted Primary care physician: Mauricio Huerta [facility] Course: Chief Complaint: Chest pain Interval history: This is a pleasant 59-year-old patient of Dr. Huerta. Patient long-standing smoker. About 540 this morning patient took a shower minutes coffee the noticed he was getting a chest pressure that progressively got worse. Patient was just feeling out of sorts started breaking a sweat became short of breath and decided to call the EMS and presented to the ER. Patient did go to neck, arms. EKG showed ST elevation in inferior and anterior leads. Patient stated the cardiac catheterization lab. Patient had successful stenting of the RCA and LAD. Today-up and about. No chest pain. No shortness of breath. Breathing stable. Care was discussed. Questions were answered. Consultation: [facility] Physical examination: VITAL SIGNS: 97.7, 73, 18, 128/73, 97% on room air GENERAL: sitting up in bed, comfortable EYES: Pupils equal. Conjunctiva normal. HEENT: External appearance of nose and ears normal, oral cavity grossly normal. NECK: JVD not raised; masses not palpable. HEART: First and second heart sounds are normal; no edema. LUNGS: Respiratory rate normal; improved air entry ABDOMEN: Soft, nontender, liver spleen not palpable, no masses palpable. PSYCH: Alert and oriented x3; mood and affect normal. INVESTIGATIONS, reviewed in the clinical context: Hemoglobin 14.9 Previous testing EKG tracing personally reviewed by me-ST elevation inferior-anterior leads sinus rhythm Chest x-ray film personally reviewed by me-cardiomegaly, questionable venous prominence 2-D echocardiogram-year 50-55%, inferior wall hypokinetic Assessment: -Acute ST elevation microinfarction involved both the anterior and inferior wall -Coronary artery disease with stent emergently to the LAD and RCA -Chronic nicotine dependence patient cigarette smoker -COPD in a combination of chronic bronchitis and emphysema -Obesity BMI 35.6 Disposition: Home Plan - Discharge Summary Discharge Rx Participant: Yes New Discharge Prescriptions: New Aspirin 81 mg PO DAILY #30 chew Prasugrel [Effient] 10 mg PO DAILY #30 tab Nicotine 21Mg/24Hr Patch [Habitrol] 1 patch TRANSDERM DAILY #14 patch Atorvastatin [Lipitor] 80 mg PO HS #30 tab Metoprolol Tartrate [Lopressor] 12.5 mg PO BID #60 tab Nitroglycerin Sl Tabs [Nitrostat] 0.4 mg SUBLINGUAL Q5M PRN #25 tab PRN Reason: Chest Pain Albuterol Inhaler [Ventolin Hfa Inhaler] 1 - 2 puff INHALATION RT-Q6H PRN #1 inhaler PRN Reason: Wheezing Lisinopril [Zestril] 2.5 mg PO DAILY #30 tab Continue Calcium Carbonate [Tums] 500 mg PO TID PRN PRN Reason: Heartburn Discharge Medication List Calcium Carbonate [Tums] 500 mg PO TID PRN 08/30/19 [History] Albuterol Inhaler [Ventolin Hfa Inhaler] 1 - 2 puff INHALATION RT-Q6H PRN #1 inhaler 09/02/19 [Rx] Aspirin 81 mg PO DAILY #30 chew 09/02/19 [Rx] Atorvastatin [Lipitor] 80 mg PO HS #30 tab 09/02/19 [Rx] Lisinopril [Zestril] 2.5 mg PO DAILY #30 tab 09/02/19 [Rx] Metoprolol Tartrate [Lopressor] 12.5 mg PO BID #60 tab 09/02/19 [Rx] Nicotine 21Mg/24Hr Patch [Habitrol] 1 patch TRANSDERM DAILY #14 patch 09/02/19 [Rx] Nitroglycerin Sl Tabs [Nitrostat] 0.4 mg SUBLINGUAL Q5M PRN #25 tab 09/02/19 [Rx] Prasugrel [Effient] 10 mg PO DAILY #30 tab 09/02/19 [Rx] Follow up Appointment(s)/Referral(s): Mauricio Huerta MD [Primary Care Provider] - 3 Days (Family wishing to find new primary physician. Do not make appointment for discharge. ) Yaya Perez MD [STAFF PHYSICIAN] - 09/10/19 9:00 am (Monday -bring in all ID and a list of your medications) Patient Instructions/Handouts: Heart Attack (DC), How to Stop Smoking (DC), Heart Healthy Diet (DC), Coronary Intravascular Stent Placement (DC) Activity/Diet/Wound Care/Special Instructions: CARDIAC CATH 1. Support your puncture site by applying firm, steady pressure whenever you cough, laugh, sneeze or bear down to have a bowel movement (2-day restriction). 2. Watch for any excessive bruising, active bleeding, a firm knot forming under your skin, extreme tenderness and signs of infection (redness, swelling, fever). 3. Shower daily, do not soak puncture in a tub bath, jacuzzi, pool, cervantes etc. for 1 week. This is to prevent risk of infection. 4. Drink plenty of fluids the day of and day after your procedure to flush contrast dye out of your kidneys. 5. Take all medications as directed. Never stop any new medication without your physicians OK. 6. No driving for 2 days after procedure. 7. 10- pound weight lifting restriction for 1 week. 8. Low sodium/low fat diet. 9. Activity limited until follow up appointment with your network operations lead. In case of any problems, please call [facility] [place] @ [phone]. DC when seen and cleared by cardiology Discharge Disposition: HOME SELF-CARE Plan of Treatment: Discharge instructions printed and given to patient to read ahead of time.
[2019-09-03] MEDS ORDERED: ASPIRIN 81 MG PO SCH (09:00)
--- NOTE | 2019-09-04 08:45 | CONS ---
CONSULTATION INDICATION: Acute inferior wall myocardial infarction. PROCEDURE NOTE: After obtaining informed consent, left heart catheterization and coronary angiogram are performed via the right femoral artery using standard Noé catheters. The patient tolerated the procedure well without any obvious immediate complications. A femoral angiogram was performed and Angio-Seal was deployed for hemostasis. FINDINGS: 1. HEMODYNAMICS: Left ventricular end-diastolic pressure is 20 mm. There is no significant gradient across the aortic valve. 2. LEFT VENTRICULOGRAM: Left ventriculogram is not performed. 3. ANGIOGRAPHIC DATA: LEFT MAIN CORONARY ARTERY: Left main coronary artery is a normal-sized vessel and is free of stenosis. Divides into left anterior descending coronary artery and circumflex coronary artery. LAD shows a focal 70%-80%stenosis in the proximal part. Circumflex coronary artery and its branches are free of significant stenosis. Right coronary artery is totally occluded in the proximal portion. CONCLUSION: 1. Acute occlusion of the proximal part of the right coronary artery. 2. A 70% to 80% stenosis involving the proximal part of left anterior descending artery. PLAN: Patient will undergo angioplasty of the right coronary artery and LAD. MMODL / IJN: [id number] /
--- NOTE | 2019-09-04 08:52 | LTR ---
DATE OF SERVICE: 09/04/2019 RE: Umesh Martinez Dear Mauricio; I performed cardiac catheterization on Umesh Martinez, a detailed report is enclosed for your records. In brief, this 59-year-old gentleman presented to [facility] with acute inferior wall myocardial infarction and underwent emergent cardiac catheterization and primary angioplasty of the totally occluded right coronary artery and also had angioplasty with stenting of the LAD at the same setting. Thank you for allowing us to participate in the care of this pleasant gentleman. Sincerely yours, Yaya COSTELLO / ALLISON: [id number] /
--- NOTE | 2019-09-04 13:56 | CC ---
CHIEF COMPLAINT Chest pain. This is a 59-year-old gentleman with no significant past medical history who presented to hospital with sudden onset chest pain. The pain started an hour prior to coming in. He describes it as severe pericardial chest pain 9-10 out of intensity that radiated to his back. EKG showed acute ST-segment elevation in the inferior leads and the patient was advised emergent cath and primary angioplasty. PAST MEDICAL HISTORY Negative for hypertension, diabetes, dyslipidemia. MEDICATIONS None. ALLERGIES None. FAMILY HISTORY Negative for premature coronary artery disease. SOCIAL HISTORY Significant for smoking. There is no history of EtOH abuse or drug abuse. REVIEW OF SYSTEMS HEENT: Unremarkable. CARDIAC: As described above. RESPIRATORY: Negative. GI: Negative. GENITOURINARY: Negative. ALLERGY/IMMUNOLOGY: Negative. SKIN: Negative. MUSCULOSKELETAL: Negative. DERM: Negative. CONSTITUTIONAL: Negative ONCOLOGICAL: Negative. [employer] BUSINESS ADMINISTRATOR: Negative. Rest of the system review is not relevant. PHYSICAL EXAM Patient is comfortable at rest. Vital signs are stable. There is no jugular venous distention. Carotid upstroke is normal. There is no bruit. Chest exam reveals good air entry bilaterally. Heart exam reveals first and second heart sounds. No gallop. Abdomen is soft. Exam of the extremities did not reveal any edema. Peripheral pulses are felt. EKG showed acute inferior wall myocardial infarction. Labs were pending. ASSESSMENT Acute inferior wall myocardial infarction. PLAN The patient will undergo emergent cardiac catheterization. CARDIAC CATHETERIZATION NOTE INDICATION Acute inferior wall myocardial infarction. PROCEDURE NOTE After obtaining informed consent, left heart catheterization and coronary angiogram were performed via the right femoral artery using standard Noé catheters. Patient tolerated the procedure well without any obvious immediate complications. Patient received moderate conscious sedation. Total sedation time was 11 minutes. FINDINGS HEMODYNAMICS: Left ventricular end-diastolic pressure is 16 mm. There is no significant gradient across the aortic valve. LEFT VENTRICULOGRAM: Left ventriculogram was not performed. ANGIOGRAPHIC DATA LEFT MAIN CORONARY ARTERY: Left main coronary artery is a normal-sized vessel and is free of stenosis. Divides into left anterior descending coronary artery and circumflex coronary artery. LAD shows an 80% - 90% focal stenosis in the midportion. The circumflex coronary artery shows mild nonobstructive coronary artery disease. Right coronary artery is totally occluded in its proximal portion. CONCLUSION Acute occlusion of the proximal right coronary artery. An 80% to 90% stenosis in the left anterior descending a. PLAN Patient will undergo angioplasty of both the RCA and the LAD. MINE
== END 2019-09-02 15:27 | disposition home or self-care (01) | DRG 247 ==
LOC: EC 06:41 → 2SICU 06:58 → 3SCARD 08-31 14:14
PROVIDERS: ADMIT Hospitalist; ATTEND Hospitalist
PROC: 027136Z Dilation of Coronary Artery, Two Arteries with Three Drug-eluting Intraluminal Devices, Percutaneous Approach (ICD-10-PCS; principal; 2019-08-30 06:56)
PROC: 02C03ZZ Extirpation of Matter from Coronary Artery, One Artery, Percutaneous Approach (ICD-10-PCS; principal; 2019-08-30 06:56)
PROC: B2111ZZ Fluoroscopy of Multiple Coronary Arteries using Low Osmolar Contrast (ICD-10-PCS; 2019-08-30 06:56)
PROC: 4A023N7 Measurement of Cardiac Sampling and Pressure, Left Heart, Percutaneous Approach (ICD-10-PCS; 2019-08-30 06:56)
DX: I21.19 ST elevation (STEMI) myocardial infarction involving other coronary artery of inferior wall (principal); I21.09 ST elevation (STEMI) myocardial infarction involving other coronary artery of anterior wall; E66.9 Obesity, unspecified; E78.5 Hyperlipidemia, unspecified; F17.210 Nicotine dependence, cigarettes, uncomplicated; I10 Essential (primary) hypertension; I25.10 Atherosclerotic heart disease of native coronary artery without angina pectoris; J43.9 Emphysema, unspecified; M25.561 Pain in right knee; Z68.35 Body mass index [BMI] 35.0-35.9, adult; Z82.49 Family history of ischemic heart disease and other diseases of the circulatory system
CPT/HCPCS: 36415; 71045; 80048; 80053; 82150; 82550; 82553; 83690; 83735; 84484; 85025; 85379; 85610; 85730; 93005; 93306; 93458; 96365; 96374; 96375; 99285; C1874